=== PATIENT | male | born 1970 | race Caucasian/White ===

== ENCOUNTER 2020-03-22 11:58 | Emergency (ER) | payer OTHER ==
[~2020-03-22] VITALS: Ht 188 cm; Wt 90.7 kg
[2020-03-22 12:12] VITALS: Ht 188 cm; Wt 90.7 kg
[2020-03-22 12:46] VITALS: BP 138/89
== END 2020-03-22 12:47 | disposition home or self-care (01) ==
LOC: ED 11:58
DX: F10.129 Alcohol abuse with intoxication, unspecified (principal); F32.9 Major depressive disorder, single episode, unspecified; G89.29 Other chronic pain; M54.9 Dorsalgia, unspecified; F17.210 Nicotine dependence, cigarettes, uncomplicated

== ENCOUNTER 2020-03-22 14:50 | Emergency (ER) | payer OTHER ==
[2020-03-22 16:21] LABS: PLATELET COUNT 211 x10^3mcL (130-400); RED CELL DISTRIBUTION WIDTH 16.5 % (11.5-14.5)
[2020-03-22 16:36] LABS: CALCIUM 8.4 mg/dL (8.5-10.1); CARBON DIOXIDE 25.8 mmol/L (21-32); CHLORIDE SERUM 104 mmol/L (98-107); CREATININE SERUM 0.9 mg/dL (0.7-1.3); GFR1 > 60 mL/min; GLUCOSE SERUM 91 mg/dL (74-106); POTASSIUM SERUM 3.5 mmol/L (3.5-5.1); SODIUM SERUM 141 mmol/L (136-145)
[2020-03-22 16:49] LABS: ALBUMIN 3.7 g/dL (3.4-5.0); ALKALINE PHOSPHATASE 101 U/L (46-116); ALT/SGPT 36 U/L (16-63); AST/SGOT 37 U/L (15-37); BILIRUBIN TOTAL 0.3 mg/dL (0.20-1.00); TOTAL PROTEIN, SERUM 7.8 g/dL (6.4-8.2)
[2020-03-22 19:25] LABS: microscopic required? NO
[2020-03-22 19:51] LABS: urine erythrocyte NEGATIVE (NEGATIVE)
[2020-03-22 20:06] LABS: AMPHETAMINE QUAL UR NONE DETECTED (See below)
[2020-03-23 07:04] VITALS: BP 159/92
== END 2020-03-23 07:04 | disposition home or self-care (01) ==
LOC: ED 14:50
PROVIDERS: Emergency Medicine
DX: F10.129 Alcohol abuse with intoxication, unspecified (principal); R45.851 Suicidal ideations; F32.9 Major depressive disorder, single episode, unspecified; F41.9 Anxiety disorder, unspecified
CPT/HCPCS: G0480